=== PATIENT | female | born 1930 | race Caucasian/White ===

== ENCOUNTER 2018-10-28 10:06 | Emergency (ER) | payer OTHER ==
--- OUTSIDE RECORDS SUMMARY | 2018-10-28 10:08 | XMS REPORT | Clinical Summary ---
:1930 Author Organization [facility] Address [address] [place] [id number] Care Team Providers Name Role Phone Paresh Mcneil MD Primary Care Provider Allergies Active Allergy Reactions Severity Noted Date Comments No Known Drug Allergies Medications Medication Sig Dispensed Refills Start End Status Date Date amLODIPine (NORVASC) amlodipine 5 mg 0 Active 5 mg tablet tablet aspirin (ECOTRIN) 81 Take 1 tablet every 0 Active MG enteric coated day by oral route. tablet atorvastatin atorvastatin 20 mg 0 Active (LIPITOR) 20 MG tablet tablet levothyroxine levothyroxine 50 mcg 0 Active (SYNTHROID, LEVOXYL) tablet 50 mcg tablet UBIDECARENONE (COQ-10 Take by mouth. 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 Encounters Date Type Specialty Care Team Description 08/01/2018 Office Visit Cardiology German Tello MD Takotsubo cardiomyopathy (Primary Dx); Essential hypertension after 10/27/2017 Family History Medical History Relation Name Comments Coronary artery disease Brother Relation Name Status Comments Brother Social History Tobacco Use Types Packs/Day Years Used Date Never Smoker Smokeless Tobacco: Never Used Alcohol Use Drinks/Week oz/Week Comments No Sex Assigned at Date Recorded Not on file Job Start Date Occupation Industry Not on file Not on file Not on file Travel History Travel Start Travel End No recent travel history available. Last Filed Vital Signs Vital Sign Reading Time Taken Blood Pressure 160/81 08/01/2018 10:17 AM CDT Pulse 58 08/01/2018 10:17 AM CDT Temperature - - Respiratory Rate - - Oxygen Saturation - - Inhaled Oxygen Concentration - - Weight 53.1 kg (117 lb) 08/01/2018 10:17 AM CDT Height 170.2 cm (5' 7") 08/01/2018 10:17 AM CDT Body Mass Index 18.32 08/01/2018 10:17 AM CDT Plan of Treatment Date Type Specialty Care Team Description 07/31/2019 Office Visit Cardiology German Tello MD [address] [address] Health Maintenance Due Date Last Done Comments SHINGLES VACCINES (1 of 2) 1979 PNEUMOCOCCAL POLYSACCHARIDE VACCINE AGE 65 AND OVER 1994 PNEUMOCOCCAL-13 1994 INFLUENZA VACCINE 05/24/2018 Procedures Procedure Name Priority Date/Time Associated Diagnosis Comments ECG 12-LEAD Routine 08/01/2018 9:18 AM Takotsubo cardiomyopathy Results for this CDT procedure are in the results section. after 10/27/2017 Results ECG 12 lead (08/01/2018 9:18 AM CDT) Ventricular rate 60 [facility] Atrial rate 60 [facility] ID interval 166 [facility] QRSD interval 92 [facility] QT interval 434 [facility] QTC interval 434 [facility] P axis 1 77 [facility] QRS axis 1 22 [facility] T wave axis 65 [facility] EKG impression Normal sinus rhythm-Left ventricular hypertrophy with repolarization abnormality-Cannot rule out Septal infarct (cited on or before )-Abnormal ECG-In automated comparison with ECG of 02-AUG-2017 09:15,- No significant change was [facility] found- : 13 AM Performing Organization Address City/State/Zipcode Phone Number [facility] M[address] [place] [address] after 10/27/2017 Insurance Payer Benefit Plan / Group Subscriber ID Type Phone Address [facility] xxxxxxxxx HMO Advance Directives Patient has advance care planning documents on file. For more information, please contact:It[address] [place] [address]
[2018-10-28 11:14] LABS: Urine Blood 1+ (NEG); Urine Glucose NEGATIVE (NEG); Urine Protein 2+ (NEG)
[2018-10-28 11:17] LABS: Urine Bacteria >50 /HPF (<20); Urine Culture Reflex Order NOT NEEDED; Urine RBC <5 /HPF (NONE SEEN)
[2018-10-28 11:22] LABS: Absolute Lymphocytes (CBC) 1.3 K/uL (0.7-4.9); Absolute Monocytes 0.6 K/uL (0.1-1.3); Absolute Neutrophil 6.7 K/uL (1.8-8.0); Eosinophils % 0.8 % (0-4.4); Hematocrit 40.7 % (36.0-45.0); Lymphocytes % 14.6 % (15.3-44.8); MPV 8.6 fL (7.6-11.3); RBC Red Blood Cell Count 4.52 M/uL (3.86-4.86)
[2018-10-28 11:41] LABS: Albumin 3.7 g/dL (3.4-5.0); Bilirubin Direct 0.3 mg/dL (0-0.2); Potassium 3.7 mmol/L (3.5-5.1); Protein, Total 7.1 g/dL (6.4-8.2)
[2018-10-28] MEDS ORDERED: CEFTRIAXONE 1000 MG/VIAL ONE (12:08)
[2018-10-28] MEDS ORDERED: NA CHLORIDE 0.9% 100 ML IV ONE (12:08)
--- NOTE | 2018-10-28 13:07 | RAD REPORT ---
EXAM DESCRIPTION: CT - Abdomen Pelvis W Contrast - 10/28/2018 12:17 pm CLINICAL HISTORY: Abdominal pain with vomiting COMPARISON: none. TECHNIQUE: Computed axial tomography of the abdomen pelvis was obtained. 100 cc Isovue-300 was admin istered intravenously. Oral contrast was not requested which limits evaluation of bowel. All CT scans are performed using dose optimization technique as appropriate and may include automated exposure control or mA/KV adjustment according to patient size. FINDINGS: The liver, spleen, pancreas, adrenal and kidneys demonstrate no significant abnormality The gallbladder is distended. Mild dilatation of the common bile duct is seen. . There is no evidence of diverticulitis. Fluid is present throughout nondilated large and small bowel IMPRESSION: Gallbladder distention. Mild dilatation of the common bile duct.
--- NOTE | 2018-10-28 13:30 | ER ---
Nurse's Notes [facility] Name: Aurora Brito Age: 88 yrs Sex: Female : 1930 Arrival Date: 10/28/2018 Time: 10:09 Bed 8 Private MD: Marcell Joiner E Diagnosis: Diarrhea, unspecified;Urinary tract infection, site not specified Presentation: 10/28 10:19 Presenting complaint: Patient states: Loose stool since 10/09/18. Vomited x 1 episode aj last night. Has not seen PCP for this issue. Transition of care: patient was not received from another setting of care. Onset of symptoms was October 09, 2018. Risk Assessment: Do you want to hurt yourself or someone else? Patient reports no desire to harm self or others. Initial Sepsis Screen: Does the patient meet any 2 criteria? No. Patient's initial sepsis screen is negative. Does the patient have a suspected source of infection? No. Patient's initial sepsis screen is negative. Care prior to arrival: None. 10:19 Method Of Arrival: Ambulatory aj 10:19 Acuity: MELISSA 3 aj Triage Assessment: 10:23 General: Appears in no apparent distress. comfortable, Behavior is calm, cooperative, aj appropriate for age. Pain: Denies pain. Neuro: Level of Consciousness is awake, alert, obeys commands, Oriented to person, place, time, situation, Appropriate for age. Respiratory: Airway is patent Trachea midline Respiratory effort is even, unlabored, Respiratory pattern is regular, symmetrical. GI: Reports diarrhea, vomiting. Derm: Skin is intact, is thin, Skin is pink, warm \\T\\ dry. normal. Historical: - Allergies: 10:23 No Known Allergies; aj - PMHx: 10:23 Hypertension; "Menieres"; macular degeneration; aj - PSHx: 10:23 Appendectomy; aj - Immunization history:: Flu vaccine is not up to date. - Social history:: Smoking status: Patient/guardian denies using tobacco. - Ebola Screening: : Patient negative for fever greater than or equal to 101.5 degrees Fahrenheit, and additional compatible Ebola Virus Disease symptoms Patient denies exposure to infectious person Patient denies travel to an Ebola-affected area in the 21 days before illness onset No symptoms or risks identified at this time. Screenin:31 Abuse screen: Denies threats or abuse. Denies injuries from another. Nutritional bp screening: No deficits noted. Tuberculosis screening: No symptoms or risk factors identified. Fall Risk None identified. Assessment: 10:20 General: Appears in no apparent distress. comfortable, slender, Behavior is calm, bp cooperative, appropriate for age. Pain: Denies pain. Neuro: Level of Consciousness is awake, alert, obeys commands, Oriented to person, place, time, situation, Appropriate for age. Cardiovascular: No deficits noted. Respiratory: Airway is patent Respiratory effort is even, unlabored, Respiratory pattern is regular, symmetrical. GI: Reports diarrhea, nausea, vomiting. GI: Abdomen is flat, non-distended, Bowel sounds present X 4 quads. : No signs and/or symptoms were reported regarding the genitourinary system. EENT: No deficits noted. Derm: No deficits noted. Musculoskeletal: Circulation, motion, and sensation intact. Range of motion: intact in all extremities. 11:21 Reassessment: ALL CURRENT ORDERS COMPLETED, RESULTS PENDING. bp 12:25 Reassessment: PT RETURNED FROM CT, ALL CURRENT ORDERS COMPLETED. bp 13:10 Reassessment: ALL CURRENT ORDERS COMPLETED, VS STABLE ON MONITOR. bp 13:45 Reassessment: PT D/C HOME AMBULATORY WITH FAMILY, DX WITH DIARRHEA AND UTI. bp Vital Signs: 10:23 BP 114 / 86; Pulse 85; Resp 20; Temp 98.1; Pulse Ox 99% on R/A; Weight 51.26 kg; Height aj 5 ft. 7 in. (170.18 cm); 11:18 BP 135 / 87; Pulse 67; Resp 14; Pulse Ox 100% ; bp 12:26 BP 142 / 85; Pulse 72; Resp 14; Pulse Ox 100% ; bp 13:09 BP 138 / 82; Pulse 71; Resp 14; Pulse Ox 100% ; bp 10:23 Body Mass Index 17.70 (51.26 kg, 170.18 cm) aj ED Course: 10:09 Patient arrived in ED. mr 10:10 Marcell Joiner MD is Private Physician. mr 10:21 Triage completed. aj 10:23 Arm band placed on right wrist. Patient placed in an exam room. aj 10:24 Darrin Hutchison PA is PHCP. jr8 10:24 James Pagan MD is Attending Physician. jr8 10:27 Femi, Roger, RN is Primary Nurse. bp 10:31 Patient has correct armband on for positive identification. Placed in gown. Bed in low bp position. Call light in reach. Side rails up X2. Adult w/ patient. 10:58 Urine collected: clean catch specimen, cloudy, mae colored. jb1 11:10 Inserted saline lock: 20 gauge in right forearm, using aseptic technique. Blood bp collected. 12:21 CT Abd/Pelvis - W/Contrast In Process Unspecified. EDMS 13:29 Marko Mcneil MD is Referral Physician. jr8 13:45 No provider procedures requiring assistance completed. IV discontinued, intact, bp bleeding controlled, No redness/swelling at site. Pressure dressing applied. Administered Medications: 11:21 Not Given (Patient Refused): Tylenol 1000 mg PO once bp 11:50 Drug: Rocephin 1 grams Route: IV; Rate: calculated rate; Site: right forearm; bp 13:44 Follow up: IV Status: Completed infusion; IV Intake: 100ml bp Intake: 13:44 IV: 100ml; Total: 100ml. bp Outcome: 13:29 Discharge ordered by . jr8 13:45 Discharged to home ambulatory, with family. bp 13:45 Condition: stable 13:45 Discharge instructions given to patient, family, Instructed on discharge instructions, follow up and referral plans. medication usage, Demonstrated understanding of instructions, follow-up care, medications, Prescriptions given X 3. 13:46 Patient left the ED. bp Addendum: 10/30/2018 07:42 Addendum: Culture Results: Positive urine culture. No further action required. Bacteria s s sensitive to prescribed antibiotic. Signatures: Dispatcher [employer] EDPR Zak Brito jb1 Mary Lopez, RN Maddy Izaguirre Shayy Marvin, RN Darrin Pierce PA PA jr8 Roger Kahn, RN RN bp
--- NOTE | 2018-10-28 13:30 | EDPHYS ---
Physician Documentation [facility] Name: Aurora Brito Age: 88 yrs Sex: Female : 1930 Arrival Date: 10/28/2018 Time: 10:09 Bed 8 Private MD: Marcell Joiner E ED Physician James Pagan HPI: 10/28 11:14 This 88 yrs old Female presents to ER via Ambulatory with complaints of jr8 Vomiting/Diarrhea, Decreased Appetite. 11:14 The patient presents to the emergency department with nausea, diarrhea. Onset: The jr8 symptoms/episode began/occurred gradually, 3 week(s) ago. Possible causes: unknown. The symptoms are aggravated by nothing. The symptoms are alleviated by nothing. Associated signs and symptoms: The patient has no apparent associated signs or symptoms. Severity of symptoms: At their worst the symptoms were mild in the emergency department the symptoms are unchanged. The patient has not experienced similar symptoms in the past. The patient has not recently seen a physician. Historical: - Allergies: 10:23 No Known Allergies; aj - PMHx: 10:23 Hypertension; "Menieres"; macular degeneration; aj - PSHx: 10:23 Appendectomy; aj - Immunization history:: Flu vaccine is not up to date. - Social history:: Smoking status: Patient/guardian denies using tobacco. - Ebola Screening: : Patient negative for fever greater than or equal to 101.5 degrees Fahrenheit, and additional compatible Ebola Virus Disease symptoms Patient denies exposure to infectious person Patient denies travel to an Ebola-affected area in the 21 days before illness onset No symptoms or risks identified at this time. ROS: 11:14 Eyes: Negative for injury, pain, redness, and discharge, ENT: Negative for injury, jr8 pain, and discharge, Neck: Negative for injury, pain, and swelling, Cardiovascular: Negative for chest pain, palpitations, and edema, Respiratory: Negative for shortness of breath, cough, wheezing, and pleuritic chest pain, Back: Negative for injury and pain, MS/Extremity: Negative for injury and deformity, Skin: Negative for injury, rash, and discoloration, Neuro: Negative for headache, weakness, numbness, tingling, and seizure. 11:14 Abdomen/GI: Positive for nausea, diarrhea, Negative for abdominal pain, constipation, abdominal cramps, abdominal distension, anorexia, dysphagia, hematemesis, black/tarry stool, rectal pain, rectal bleeding, bowel incontinence, flatulence. Exam: 11:14 Eyes: Pupils equal round and reactive to light, extra-ocular motions intact. Lids and jr8 lashes normal. Conjunctiva and sclera are non-icteric and not injected. Cornea within normal limits. Periorbital areas with no swelling, redness, or edema. ENT: Nares patent. No nasal discharge, no septal abnormalities noted. Tympanic membranes are normal and external auditory canals are clear. Oropharynx with no redness, swelling, or masses, exudates, or evidence of obstruction, uvula midline. Mucous membranes moist. Neck: Trachea midline, no thyromegaly or masses palpated, and no cervical lymphadenopathy. Supple, full range of motion without nuchal rigidity, or vertebral point tenderness. No Meningismus. Cardiovascular: Regular rate and rhythm with a normal S1 and S2. No gallops, murmurs, or rubs. Normal PMI, no JVD. No pulse deficits. Respiratory: Lungs have equal breath sounds bilaterally, clear to auscultation and percussion. No rales, rhonchi or wheezes noted. No increased work of breathing, no retractions or nasal flaring. Abdomen/GI: Soft, non-tender, with normal bowel sounds. No distension or tympany. No guarding or rebound. No evidence of tenderness throughout. Back: No spinal tenderness. No costovertebral tenderness. Full range of motion. Skin: Warm, dry with normal turgor. Normal color with no rashes, no lesions, and no evidence of cellulitis. MS/ Extremity: Pulses equal, no cyanosis. Neurovascular intact. Full, normal range of motion. Neuro: Awake and alert, GCS 15, oriented to person, place, time, and situation. Cranial nerves II-XII grossly intact. Motor strength 5/5 in all extremities. Sensory grossly intact. Cerebellar exam normal. Normal gait. Vital Signs: 10:23 BP 114 / 86; Pulse 85; Resp 20; Temp 98.1; Pulse Ox 99% on R/A; Weight 51.26 kg; Height aj 5 ft. 7 in. (170.18 cm); 11:18 BP 135 / 87; Pulse 67; Resp 14; Pulse Ox 100% ; bp 12:26 BP 142 / 85; Pulse 72; Resp 14; Pulse Ox 100% ; bp 13:09 BP 138 / 82; Pulse 71; Resp 14; Pulse Ox 100% ; bp 10:23 Body Mass Index 17.70 (51.26 kg, 170.18 cm) aj MDM: 10:25 Patient medically screened. 13:29 Data reviewed: vital signs, nurses notes, lab test result(s), radiologic studies, CT jr8 scan, and as a result, I will discharge patient. Data interpreted: Pulse oximetry: on room air is 100 %. Interpretation: normal. Counseling: I had a detailed discussion with the patient and/or guardian regarding: the historical points, exam findings, and any diagnostic results supporting the discharge/admit diagnosis, lab results, radiology results, the need for outpatient follow up, a family practitioner, a internet architect, to return to the emergency department if symptoms worsen or persist or if there are any questions or concerns that arise at home. 10/28 10:36 Order name: Basic Metabolic Panel; Complete Time: 11:56 10/28 10:36 Order name: CBC with Diff; Complete Time: 11:56 10/28 10:36 Order name: Creatinine for Radiology; Complete Time: 11:56 10/28 10:36 Order name: Hepatic Function; Complete Time: 11:56 10/28 10:36 Order name: Lipase; Complete Time: 11:56 10/28 10:58 Order name: Urine Culture 10/28 10:58 Order name: Urine Microscopic Only; Complete Time: 11:23 [facility] 10/28 11:09 Order name: Urine Dipstick--Ancillary (enter results); Complete Time: 11:16 ag 10/28 11:56 Order name: CT Abd/Pelvis - W/Contrast; Complete Time: 13:18 10/28 12:13 Order name: Stool Culture 10/28 12:13 Order name: Ova And Parasites 10/28 12:13 Order name: Occult Blood 10/28 12:13 Order name: Fecal Leukocyte Stain; Complete Time: 13:28 10/28 12:13 Order name: CDIFF 10/28 10:36 Order name: IV Saline Lock; Complete Time: 11:11 10/28 10:36 Order name: Labs collected and sent; Complete Time: 11:11 8 10/28 10:36 Order name: Urine Dipstick-Ancillary (obtain specimen); Complete Time: 10:57 8 Administered Medications: 11:21 Not Given (Patient Refused): Tylenol 1000 mg PO once bp 11:50 Drug: Rocephin 1 grams Route: IV; Rate: calculated rate; Site: right forearm; bp 13:44 Follow up: IV Status: Completed infusion; IV Intake: 100ml bp Disposition: 10/28/18 13:29 Discharged to Home. Impression: Diarrhea, unspecified, Urinary tract infection, site not specified. - Condition is Stable. - Discharge Instructions: Diarrhea, Adult, Urinary Tract Infection, Adult. - Prescriptions for Cipro 500 mg Oral Tablet - take 1 tablet by ORAL route every 12 hours for 10 days; 20 tablet. Flagyl 500 mg Oral Tablet - take 1 tablet by ORAL route every 6 hours for 10 days; 40 tablet. Zofran 4 mg Oral Tablet - take 1 tablet by ORAL route every 12 hours As needed; 20 tablet. - Medication Reconciliation Form, Thank You Letter, Antibiotic Education, Prescription Opioid Use form. - Follow up: Marko Mcneil MD; When: 2 - 3 days; Reason: Recheck today's complaints, Continuance of care, Re-evaluation by your physician. - Problem is new. - Symptoms have improved. Addendum: 11/01/2018 08:05 Co-signature as Attending Physician, James Pagan MD I agree with the assessment and c guerin plan of care. Signatures: Dispatcher [employer] EDMary Tabares RN RN aj Anderson, Corey, MD MD cha Roszak, Josh, PA PA jr8 Roger Kahn RN RN bp Corrections: (The following items were deleted from the chart) 10/28 13:46 13:29 10/28/2018 13:29 Discharged to Home. Impression: Diarrhea, unspecified; Urinary bp tract infection, site not specified. Condition is Stable. Forms are Medication Reconciliation Form, Thank You Letter, Antibiotic Education, Prescription Opioid Use. Follow up: Marko Mcneil; When: 2 - 3 days; Reason: Recheck today's complaints, Continuance of care, Re-evaluation by your physician. Problem is new. Symptoms have improved. jr8
[2018-10-28 13:51] VITALS: TEMP 98.1
[2018-10-28 13:52] VITALS: O2SAT 100
[2018-10-28 13:55] VITALS: BP 138/82
== END 2018-10-28 13:46 | disposition home or self-care (01) ==
LOC: ER 10:06
DX: N39.0 Urinary tract infection, site not specified (principal); I10 Essential (primary) hypertension
CPT/HCPCS: 36415; 74177; 80048; 80076; 83690; 85025; 87045; 87046; 87077; 87086; 87088; 87177; 87186; 87209; 87493; 89055; 96365; 96366; 99284; Q9967; 81003; 81015

== ENCOUNTER 2019-05-23 17:50 | Emergency (ER) | payer OTHER ==
--- OUTSIDE RECORDS SUMMARY | 2019-05-23 17:52 | XMS REPORT | Clinical Summary ---
:1930 Author Organization [facility] Address [address] [place] [address] Care Team Providers Name Role Phone Paresh [...] Takotsubo cardiomyopathy (Primary Dx); Essential hypertension after 05/22/2018 Family History Medical History Relation Name Comments [...] 07/31/2019 Office Visit Cardiology German Tello MD [address] [address] Health Maintenance Due Date Last Done Comments SHINGLES VACCINES (#1) 1979 65+ PNEUMOCOCCAL VACCINE (1 of 2 - PCV13) 1994 INFLUENZA VACCINE 05/24/2019 Procedures Procedure Name Priority Date/Time Associated Diagnosis Comments ECG 12-LEAD Routine 08/01/2018 9:18 AM Takotsubo cardiomyopathy Results for this CDT procedure are in the results section. after 05/22/2018 Results ECG 12 lead (08/01/2018 9:18 AM CDT) Ventricular rate 60 [facility] Atrial rate 60 [facility] [place] interval 166 [facility] QRSD interval 92 [...] was [facility] M[facility] found- : 13 AM Specimen Performing Organization Address City/State/Zipcode Phone Number [facility] MUSE [address] [place] [address] after 05/22/2018 ([place]) [place] [address] Advance Directives Patient has advance care planning documents on file. For more information, please contact:Itz [address] [place] [address]
--- NOTE | 2019-05-23 18:42 | RAD REPORT ---
EXAM DESCRIPTION: CT - Head Brain Wo Cont - 05/23/2019 6:31 pm CLINICAL HISTORY: HTN;Headache COMPARISON: No comparisons TECHNIQUE: All CT scans are performed using dose optimization technique as appropriate and may inclu de automated exposure control or mA/KV adjustment according to patient size. FINDINGS: No intracranial hemorrhage, hydrocephalus or extra-axial fluid collection.Moderate general ized brain atrophy is present with moderate periventricular and deep white matter chronic microvascul ar ischemic changes.No areas of brain edema or evidence of midline shift. The paranasal sinuses and mastoids are clear. The calvarium is intact. IMPRESSION: No acute intracranial abnormality.
[2019-05-23 19:02] LABS: Absolute Lymphocytes (CBC) 1.5 K/uL (0.7-4.9); Basophils % 1.2 % (0-1.3); Hematocrit 35.1 % (36.0-45.0); Lymphocytes % 26.3 % (15.3-44.8); MPV 9.2 fL (7.6-11.3)
[2019-05-23 19:17] LABS: ALT/SGPT 34 U/L (12-78); AST/SGOT 47 U/L (15-37); Albumin 3.6 g/dL (3.4-5.0); Alkaline Phosphatase 86 U/L (45-117); BUN Blood Urea Nitrogen 21 mg/dL (7-18); Bicarbonate 27 mmol/L (21-32); Bilirubin Total 0.6 mg/dL (0.2-1.0); Glucose Level 93 mg/dL (74-106); Potassium 3.9 mmol/L (3.5-5.1); Protein, Total 6.9 g/dL (6.4-8.2); Sodium Level 136 mmol/L (136-145); Troponin (Emerg Dept Use Only) < 0.02 ng/mL (0.0-0.045)
--- NOTE | 2019-05-23 19:34 | RAD REPORT ---
EXAM DESCRIPTION: MRI - Brain Wo Cont - 05/23/2019 7:24 pm CLINICAL HISTORY: ams;Aphasia Headache, hypertension, CVA symptomology COMPARISON: Head Brain Wo Cont dated 05/23/2019 TECHNIQUE: Multi-sequence, multiplanar MR imaging of the brain was performed without contrast. FINDINGS: No intracranial hemorrhage, hydrocephalus or extra-axial fluid collections.Moderate T2 and FLAIR hyperintensity in the periventricular and deep white matter compatible with chronic microvascu lar ischemic changes. No edema or shift of midline structures. No findings to suspect brain mass. DWI is negative for acute CVA. Midline structures are normally formed. Mastoid air cells and paranasal sinuses are clear. IMPRESSION: Negative for acute CVA or other acute intracranial process.
--- NOTE | 2019-05-23 21:02 | ER ---
Nurse's Notes [facility] Name: Aurora Brito Age: 88 yrs Sex: Female : 1930 Arrival Date: 05/23/2019 Time: 17:54 Bed 30 Private MD: Marko Mcneil C Diagnosis: Headache;Hypertension Presentation: 05/23 18:02 Presenting complaint: Pt reports headache x 2-3 days and home BP 158/78 today. Denies hb dizziness/weakness/numbness. Transition of care: patient was not received from another setting of care. Onset of symptoms was May 23, 2019. Risk Assessment: Do you want to hurt yourself or someone else? Patient reports no desire to harm self or others. Care prior to arrival: None. 18:02 Method Of Arrival: Ambulatory hb 18:02 Acuity: MELISSA 3 hb 20:19 Initial Sepsis Screen: Does the patient meet any 2 criteria? No. Patient's initial rv sepsis screen is negative. Does the patient have a suspected source of infection? No. Patient's initial sepsis screen is negative. Historical: - Allergies: 18:04 No Known Allergies; hb - Home Meds: 18:04 amlodipine 5 mg tab [Active]; aspirin 81 mg Oral chew 1 tab once daily [Active]; Co hb Q-10 Oral [Active]; lovoxol 50mg [Active]; Probiotic Oral [Active]; provastatin 20 mg [Active]; viatmin d [Active]; vitamin eyes 20 mg OD [Active]; metoprolol succinate 25 mg Oral Tb24 [Active]; - PMHx: 18:04 "Menieres"; Hypertension; macular degeneration; hb - PSHx: 18:04 ovary surgery; Appendectomy; Knee surgery; hb - Immunization history:: Adult Immunizations up to date. - Social history:: Smoking status: Patient/guardian denies using tobacco. - Ebola Screening: : No symptoms or risks identified at this time. Screenin:19 Abuse screen: Denies threats or abuse. Denies injuries from another. Nutritional rv screening: No deficits noted. Tuberculosis screening: No symptoms or risk factors identified. Fall Risk None identified. Assessment: 19:30 General: Appears in no apparent distress. comfortable, Behavior is calm, cooperative. rv 19:30 Pain: Complains of pain in HEAD. Neuro: Level of Consciousness is awake, alert, obeys rv commands, Oriented to person, place, time, situation. Cardiovascular: Patient's skin is warm and dry. Respiratory: Airway is patent. GI: No signs and/or symptoms were reported involving the gastrointestinal system. : No signs and/or symptoms were reported regarding the genitourinary system. EENT: No signs and/or symptoms were reported regarding the EENT system. Derm: Skin is intact. Musculoskeletal: No signs and/or symptoms reported regarding the musculoskeletal system. 20:27 Reassessment: Patient appears in no apparent distress at this time. NATHANIEL VIGIL TALKED TO rv THE PATIENT AND THE FAMILY. EXPLAINED THE RESULTS OF BLOOD AND RADIOLOGY REPORTS. Vital Signs: 18:04 BP 179 / 104; Pulse 73; Resp 16; Temp 97.8; Pulse Ox 99% on R/A; Weight 53.98 kg; hb Height 5 ft. 7 in. (170.18 cm); Pain 4/10; 19:00 BP 180 / 42; Pulse 70; Resp 16; Pulse Ox 99% on R/A; rv 19:30 BP 177 / 102; Pulse 77; Resp 17; Pulse Ox 100% ; rv 20:00 BP 165 / 102; Pulse 75; Resp 15; Pulse Ox 100% on R/A; rv 20:15 BP 173 / 97; Pulse 77; Resp 15; Pulse Ox 100% on R/A; rv 21:03 BP 160 / 106; Pulse 73; Resp 18; Pulse Ox 100% on R/A; mg2 21:27 BP 168 / 100; Pulse 76; Resp 17; Temp 98; Pulse Ox 99% on R/A; rv 18:04 Body Mass Index 18.64 (53.98 kg, 170.18 cm) hb ED Course: 17:54 Patient arrived in ED. mr 17:55 Marko Mcneil MD is Private Physician. mr 18:03 Triage completed. hb 18:04 Arm band placed on right wrist. hb 18:[address] nj 18:20 Maximus Cedillo PA is PHCP. jmm 18:20 Colin Gonzalez MD is Attending Physician. jmm 18:26 Rj Allen, PHILL is Primary Nurse. rv 18:33 CT Head Brain wo Cont In Process Unspecified. EDMS 18:55 EKG done, by ED staff, reviewed by Colin Gonzalez MD. ms 19:15 MRI - Brain Wo Cont In Process Unspecified. EDMS 19:55 No provider procedures requiring assistance completed. Inserted saline lock: 20 gauge rv in right forearm, using aseptic technique. Blood collected. 20:19 Patient has correct armband on for positive identification. Bed in low position. Call rv light in reach. Side rails up X 1. Adult w/ patient. Pulse ox on. NIBP on. 20:59 Marko Mcneil MD is Referral Physician. jmm 21:28 IV discontinued, intact, bleeding controlled, No redness/swelling at site. Pressure rv dressing applied. Administered Medications: 21:03 Drug: amLODIPine 5 mg Route: PO; mg2 21:27 Follow up: Response: Medication administered at discharge. rv Outcome: 21:00 Discharge ordered by . [facility] 21:28 Discharged to home ambulatory, with family. rv 21:28 Condition: good 21:28 Discharge instructions given to patient, family, Instructed on discharge instructions, follow up and referral plans. Demonstrated understanding of instructions, follow-up care. 21:28 Patient left the ED. rv Signatures: Dispatcher [employer] EDMS Maximus Cedillo PA PA Maddy Lopez mr Israel, Daija ms Nuzhat Ba, PHILL RN Timur Yost Michele, PHILL RN mg2 Rj Allen, RN RN rv Corrections: (The following items were deleted from the chart) 18:04 18:02 Presenting complaint: Pt reports headache and home BP 158/78 hb hb 18:05 18:02 Presenting complaint: Pt reports headache x 2-3 days and home BP 158/78 today hb hb
--- NOTE | 2019-05-23 21:03 | EDPHYS ---
Physician Documentation [facility] Name: Aurora Brito Age: 88 yrs Sex: Female : 1930 Arrival Date: 05/23/2019 Time: 17:54 Bed 30 Private MD: Marko Mcneil C ED Physician Colin Gonzalez HPI: 05/23 18:14 This 88 yrs old Female presents to ER via Ambulatory with complaints of High jmm Blood Pressure. 18:14 Onset: The symptoms/episode began/occurred gradually, 1 day(s) ago. Modifying factors: jmm The symptoms are aggravated by activity, The symptoms are alleviated by. Associated signs and symptoms: Pertinent positives: headache, Pertinent negatives: dizziness, vomiting, weakness. This is an 88 year old female with a history of htn that presnets to the ED with complaints of headache and elevated blood pressure. Patient denies chest pain, denies vomiting, denies shortness of breath. Patient states this past Tuesday having an episode of forgetfulness. Patient denies focal weakness. Historical: - Allergies: 18:04 No Known Allergies; hb - Home Meds: 18:04 amlodipine 5 mg tab [Active]; aspirin 81 mg Oral chew 1 tab once daily [Active]; Co hb Q-10 Oral [Active]; lovoxol 50mg [Active]; Probiotic Oral [Active]; provastatin 20 mg [Active]; viatmin d [Active]; vitamin eyes 20 mg OD [Active]; metoprolol succinate 25 mg Oral Tb24 [Active]; - PMHx: 18:04 "Menieres"; Hypertension; macular degeneration; hb - PSHx: 18:04 ovary surgery; Appendectomy; Knee surgery; hb - Immunization history:: Adult Immunizations up to date. - Social history:: Smoking status: Patient/guardian denies using tobacco. - Ebola Screening: : No symptoms or risks identified at this time. ROS: 18:14 Constitutional: Negative for fever, chills, and weight loss, Cardiovascular: Negative jmm for chest pain, palpitations, and edema, Respiratory: Negative for shortness of breath, cough, wheezing, and pleuritic chest pain. 18:14 Neuro: Positive for headache. 18:14 All other systems are negative. Exam: 18:14 Constitutional: This is a well developed, well nourished patient who is awake, alert, jmm and in no acute distress. Head/Face: atraumatic. Eyes: EOMI, no conjunctival erythema appreciated ENT: Moist Mucus Membranes Neck: Trachea midline, Supple Chest/axilla: Normal chest wall appearance and motion. Cardiovascular: Regular rate and rhythm. No edema appreciated Respiratory: Normal respirations, no respiratory distress appreciated Abdomen/GI: Non distended, soft Back: Normal ROM Skin: General appearance color normal MS/ Extremity: Moves all extremities, no obvious deformities appreciated, no edema noted to the lower extremities Neuro: Awake and alert, normal gait Psych: Behavior is normal, Mood is normal, Patient is cooperative and pleasant Vital Signs: 18:04 BP 179 / 104; Pulse 73; Resp 16; Temp 97.8; Pulse Ox 99% on R/A; Weight 53.98 kg; hb Height 5 ft. 7 in. (170.18 cm); Pain 4/10; 19:00 BP 180 / 42; Pulse 70; Resp 16; Pulse Ox 99% on R/A; rv 19:30 BP 177 / 102; Pulse 77; Resp 17; Pulse Ox 100% ; rv 20:00 BP 165 / 102; Pulse 75; Resp 15; Pulse Ox 100% on R/A; rv 20:15 BP 173 / 97; Pulse 77; Resp 15; Pulse Ox 100% on R/A; rv 21:03 BP 160 / 106; Pulse 73; Resp 18; Pulse Ox 100% on R/A; mg2 21:27 BP 168 / 100; Pulse 76; Resp 17; Temp 98; Pulse Ox 99% on R/A; rv 18:04 Body Mass Index 18.64 (53.98 kg, 170.18 cm) hb MDM: 18:42 Patient medically screened. [facility] 20:55 Data reviewed: vital signs, nurses notes. ED course: IMaging studies negative. No pain [facility] on palpation of temporal arteries. I do not suspect temporal arteritis. I discussed the patient with Dr. Mcneil whom will see the patient in clinic tomorrow for reevaluation. Patient is otherwise given strict return precautions. Patient understood and agrees with the plan of care. . 05/23 18:22 Order name: CBC with Diff [facility] 05/23 18:22 Order name: CMP; Complete Time: 19:42 [facility] 05/23 18:13 Order name: CT Head Brain wo Cont; Complete Time: 18:44 rn 05/23 18:22 Order name: Troponin (emerg Dept Use Only); Complete Time: 19:42 [facility] 05/23 18:23 Order name: CBC with Automated Diff; Complete Time: 19:03 [facility] 05/23 21:13 Order name: Urine Dipstick--Ancillary (enter results) cm6 05/23 18:22 Order name: Urine Dipstick-Ancillary (obtain specimen); Complete Time: 18:47 [facility] 05/23 18:22 Order name: Saline Lock; Complete Time: 18:47 [facility] 05/23 18:42 Order name: EKG - Nurse/Tech; Complete Time: 18:55 [facility] 05/23 18:45 Order name: MRI - Brain Wo Cont; Complete Time: 19:42 [facility] Administered Medications: 21:03 Drug: amLODIPine 5 mg Route: PO; mg2 21:27 Follow up: Response: Medication administered at discharge. rv Disposition: 05/23/19 21:00 Discharged to Home. Impression: Headache, Hypertension. - Condition is Stable. - Discharge Instructions: Hypertension, General Headache Without Cause, [id number]. - Medication Reconciliation Form, Thank You Letter, Antibiotic Education, Prescription Opioid Use form. - Follow up: Marko Mcneil MD; When: Tomorrow; Reason: Recheck today's complaints, Continuance of care, Re-evaluation by your physician. Signatures: Dispatcher [employer] [facility] Maximus Cedillo PA PA Nuzhat Lemus RN RN Parag Goncalves RN RN [facility] Rj Allen RN RN rv Corrections: (The following items were deleted from the chart) 21:28 21:00 05/23/2019 21:00 Discharged to Home. Impression: Headache; Hypertension. rv Condition is Stable. Forms are Medication Reconciliation Form, Thank You Letter, Antibiotic Education, Prescription Opioid Use. Follow up: Marko Mcneil; When: Tomorrow; Reason: Recheck today's complaints, Continuance of care, Re-evaluation by your physician. [facility]
[2019-05-23] MEDS ORDERED: AMLODIPINE 5 MG TAB ONE (21:15)
[2019-05-23 21:50] LABS: Urine Blood TRACE (NEG); Urine Glucose NEGATIVE (NEG); Urine Protein NEGATIVE (NEG); Urine pH 7.5 (5.0-7.0)
[2019-05-23 23:07] VITALS: BP 168/100; TEMP 98; O2SAT 99
--- NOTE | 2019-05-25 12:39 | EKG ---
Test Date: 2019-05-23 Test Time: 18:53:49 Performance Test Engineer: MEASUREMENT RESULTS: Intervals: Rate: 67 OR: 168 QRSD: 100 QT: 400 QTc: 422 Mcclellan: P: 66 OR: 168 QRS: 1 T: 55 INTERPRETIVE STATEMENTS: Normal sinus rhythm Possible Left atrial enlargement Left ventricular hypertrophy Abnormal ECG Compared to ECG 06/28/2012 08:19:25 Early repolarization no longer present Electronically Signed On 05-25-19 12:33:18 CDT by Garret Vallecillo
== END 2019-05-23 21:28 | disposition home or self-care (01) ==
LOC: ER 17:50
DX: R51 Headache (principal); I10 Essential (primary) hypertension; Z79.82 Long term (current) use of aspirin
CPT/HCPCS: 36415; 70450; 70551; 80053; 81003; 84484; 85025; 93005